=== PATIENT | male | born 1980 | race Caucasian/White ===

== ENCOUNTER → 2022-11-12 | Outpatient (CLI) | payer BC ==
[2022-11-12 12:17] LABS: BASOPHIL % 0.1 % (0.0-0.2); EOSINOPHIL # 0.1 10^3/uL (0.0-0.2); EOSINOPHIL % 1.9 % (0.0-5.0); HEMATOCRIT(ML) 44.8 % (37.0-53.0); HEMOGLOBIN 15.1 g/dL (13.9-16.3); IG % 0.3 % (0.00-0.50); LYMPHOCYTES # 1.57 10^3/uL1 (1.0-4.8); LYMPHOCYTES % 21.2 % (24.0-44.0); MEAN CORP HGB 30.3 pg (26-34); MEAN CORP HGB CONCENTRATION 33.7 g/dL (33-36.5); MEAN CORP VOLUME 89.8 fL (78-100); MONOCYTES # 0.7 10^3/uL (0.3-0.8); MONOCYTES % 8.8 % (5.0-12.0); NEUTROPHILS % 67.7 % (41.0-85.0); RED BLOOD CELL 4.99 10^6/uL (4.50-5.90); WHITE BLOOD CELL 7.4 10^3/uL (4.5-11.0)
[2022-11-12 12:55] LABS: ALANINE AMINOTRANSFERASE(ML) 24 U/L (12-78); ALBUMIN(ML) 3.7 g/dL (3.4-5.0); ALBUMIN/GLOBULIN RATIO 1.193; ALKALINE PHOSPHATASE 106 U/L (50-136); ANION GAP 18.2; ASPARTATE AMINO TRANSFERASE 20 U/L (0-35); CALCIUM 8.6 mg/dL (8.4-10.5); CARBON DIOXIDE 22.9 mmol/L (20.0-32); CREATININE SERUM 1.09 mg/dL (0.59-1.40); EST GFR, NON-AA 74.9 (>/=60); GLUCOSE 108 mg/dL (74-106); POTASSIUM 4.1 mmol/L (3.6-5.2); SODIUM 141 mmol/L (132-145)
[2022-11-12 13:01] LABS: C-REACTIVE PROTEIN < 0.05 mg/dL (0.00-5.00)
== END | disposition home or self-care (01) ==
LOC: RAD 11:47
PROVIDERS: ATTEND Nurse Practitioner Family
DX: R22.31 Localized swelling, mass and lump, right upper limb (principal); M79.641 Pain in right hand; Z87.39 Personal history of other diseases of the musculoskeletal system and connective tissue
CPT/HCPCS: 36415; 80053; 84439; 84443; 85025; 85651; 86140; 86225; 86431; 73110-RT